=== PATIENT | female | born 1960 | race Caucasian/White ===

== ENCOUNTER 2024-11-14 11:24 | Emergency (ER) | payer OTHER ==
[~2024-11-14] VITALS: Ht 162.6 cm; Wt 51.3 kg
[2024-11-15] MEDS ORDERED: Ketorolac Tromethamine 30mg Vial IV ONE (09:05)
[2024-11-15] MEDS ORDERED: AMLODIPINE BESY10 MG PO (12:41)
[2024-11-15] MEDS ORDERED: MELO7.5 PO (12:41)
[2024-11-15] MEDS ORDERED: HYDCHL25 PO (12:42)
[2024-11-15] MEDS ORDERED: BENAZEPRIL HCL20 M4 PO (12:42)
[2024-11-15 15:06] VITALS: BP 122/77
== END 2024-11-15 16:05 ==
LOC: ER 11:24
DX: S32.591D Other specified fracture of right pubis, subsequent encounter for fracture with routine healing (principal); S32.19XD Other fracture of sacrum, subsequent encounter for fracture with routine healing; V09.9XXD Pedestrian injured in unspecified transport accident, subsequent encounter
CPT/HCPCS: 96374; 97110; 97161; 97530; 99285-25; A6590; J1885